=== PATIENT | female | born 1980 | race African-American/Black ===

== ENCOUNTER 2018-05-08 15:54 | Emergency (ER) | payer MEDICAID ==
[~2018-05-08] VITALS: Ht 165.1 cm; Wt 70.0 kg
[2018-05-08 16:00] VITALS: BP 126/70
== END 2018-05-08 19:30 | disposition left against medical advice (07) ==
LOC: ER 18:35
DX: Z53.21 Procedure and treatment not carried out due to patient leaving prior to being seen by health care provider (principal)